=== PATIENT | male | born 1990 | race American Indian/Alaskan Native ===

== ENCOUNTER 2017-04-16 06:50 | Emergency (ER) | payer MEDICAID ==
[~2017-04-16] VITALS: Ht 177.8 cm; Wt 91.1 kg
[2017-04-16 06:55] VITALS: BP 123/70
[2017-04-16] MEDS ORDERED: FLUORESCEIN OPHTHALMIC 1 MG STRIP ONE ×2 (07:13→07:25)
[2017-04-16] MEDS ORDERED: PROPARACAINE OPHTH 0.5%, 15ML ONE ×2 (07:13→07:25)
[2017-04-16] MEDS ORDERED: FLUORESCEIN OPHTHALMIC 1 MG STRIP EACHEYE ONE (07:30)
[2017-04-16] MEDS ORDERED: PROPARACAINE OPHTH 0.5%, 15ML EACHEYE ONE (07:30)
== END 2017-04-16 10:10 | disposition home or self-care (01) ==
LOC: ED 09:05
DX: H10.211 Acute toxic conjunctivitis, right eye (principal); H10.212 Acute toxic conjunctivitis, left eye; B35.3 Tinea pedis; Y04.8XXA Assault by other bodily force, initial encounter; Y93.89 Activity, other specified; Y99.8 Other external cause status; Y92.410 Unspecified street and highway as the place of occurrence of the external cause; Z77.098 Contact with and (suspected) exposure to other hazardous, chiefly nonmedicinal, chemicals

== ENCOUNTER 2017-05-08 03:21 | Emergency (ER) | payer MEDICAID ==
[~2017-05-08] VITALS: Ht 175.3 cm; Wt 88.0 kg
[2017-05-08 03:23] VITALS: BP 124/72
== END 2017-05-08 05:53 | disposition home or self-care (01) ==
LOC: ED 05:13
DX: G89.29 Other chronic pain (principal); M79.662 Pain in left lower leg; R60.0 Localized edema
CPT/HCPCS: 99284

== ENCOUNTER 2018-02-13 04:53 | Emergency (ER) | payer MEDICAID ==
[~2018-02-13] VITALS: Ht 175.3 cm; Wt 94.0 kg
[2018-02-13 04:55] VITALS: BP 127/78
[2018-02-13] MEDS ORDERED: BACITRACIN ZINC OINT 500U/GM, 0.9 GM ONE (06:14)
== END 2018-02-13 07:50 | disposition home or self-care (01) ==
LOC: ED 07:37
DX: S80.211A Abrasion, right knee, initial encounter (principal); W19.XXXA Unspecified fall, initial encounter; Y93.55 Activity, bike riding; Y92.89 Other specified places as the place of occurrence of the external cause; Y99.8 Other external cause status
CPT/HCPCS: 99284

== ENCOUNTER 2018-03-12 14:26 | Emergency (ER) | payer MEDICAID ==
[~2018-03-12] VITALS: Ht 175.3 cm; Wt 93.3 kg
[2018-03-12 14:27] VITALS: BP 124/71
[2018-03-12] MEDS ORDERED: BACITRACIN ZINC OINT 500U/GM, 0.9 GM ONE (15:36)
== END 2018-03-12 16:00 | disposition home or self-care (01) ==
LOC: ED 15:50
DX: S80.211A Abrasion, right knee, initial encounter (principal); S59.801A Other specified injuries of right elbow, initial encounter; V19.9XXA Pedal cyclist (driver) (passenger) injured in unspecified traffic accident, initial encounter; Y93.55 Activity, bike riding; Y92.89 Other specified places as the place of occurrence of the external cause; Y99.8 Other external cause status
CPT/HCPCS: 99284

== ENCOUNTER 2018-04-30 17:11 | Emergency (ER) | payer MEDICAID ==
[~2018-04-30] VITALS: Ht 170.2 cm; Wt 92.4 kg
[2018-04-30 17:16] VITALS: BP 128/75
[2018-04-30] MEDS ORDERED: DEXAMETHASONE 4 MG TABLET PO STA (17:34)
[2018-04-30] MEDS ORDERED: IBUPROFEN 800 MG TABLET PO STA (17:34)
[2018-04-30] MEDS ORDERED: DEXAMETHASONE 4 MG TABLET ONE (17:43)
[2018-04-30] MEDS ORDERED: IBUPROFEN 200 MG TABLET ONE (17:43)
== END 2018-04-30 18:42 | disposition home or self-care (01) ==
LOC: ED 17:45
DX: J02.8 Acute pharyngitis due to other specified organisms (principal)
CPT/HCPCS: 87081; 87880; 99284

== ENCOUNTER 2018-07-01 21:05 | Emergency (ER) | payer MEDICAID ==
[~2018-07-01] VITALS: Ht 170.2 cm; Wt 70.0 kg
[2018-07-01 21:09] VITALS: BP 114/70
== END 2018-07-01 21:44 | disposition home or self-care (01) ==
LOC: ED 21:20
DX: J00 Acute nasopharyngitis [common cold] (principal)
CPT/HCPCS: 99282

== ENCOUNTER 2018-07-05 18:20 | Emergency (ER) | payer MEDICAID ==
[~2018-07-05] VITALS: Ht 172.7 cm; Wt 90.8 kg
[2018-07-05 21:30] VITALS: BP 101/54
== END 2018-07-05 21:36 | disposition home or self-care (01) ==
LOC: ED 21:30
DX: S92.354A Nondisplaced fracture of fifth metatarsal bone, right foot, initial encounter for closed fracture (principal); V29.9XXA Motorcycle rider (driver) (passenger) injured in unspecified traffic accident, initial encounter; Y93.89 Activity, other specified; Y92.410 Unspecified street and highway as the place of occurrence of the external cause; Y99.8 Other external cause status
CPT/HCPCS: 99284

== ENCOUNTER 2019-10-18 18:37 | Emergency (ER) | payer MEDICAID ==
[~2019-10-18] VITALS: Ht 177.8 cm; Wt 89.0 kg
[2019-10-18 19:12] VITALS: BP 121/64
== END 2019-10-18 21:22 | disposition home or self-care (01) ==
LOC: ED 21:01
DX: B34.9 Viral infection, unspecified (principal); J00 Acute nasopharyngitis [common cold]
CPT/HCPCS: 71046; 99283

== ENCOUNTER 2020-04-07 22:54 | Emergency (ER) | payer MEDICAID ==
[~2020-04-07] VITALS: Ht 180.3 cm; Wt 89.7 kg
[2020-04-07 22:59] VITALS: BP 141/85
--- NOTE | 2020-04-08 00:07 | NUR ---
PT TO CT FROM LOBBY
[2020-04-08] MEDS ORDERED: DIPH,PERTUSS(ACELL),TET VAC/PF 0.5 ML IM-VACC ONE (00:30)
--- NOTE | 2020-04-08 01:17 | NUR ---
ERP AT BEDSIDE FOR REEVAL
== END 2020-04-08 02:11 | disposition home or self-care (01) ==
LOC: ED 04-08 01:45
DX: S00.83XA Contusion of other part of head, initial encounter (principal); M54.2 Cervicalgia; K13.79 Other lesions of oral mucosa; Y04.8XXA Assault by other bodily force, initial encounter; Y93.89 Activity, other specified; Y92.488 Other paved roadways as the place of occurrence of the external cause; Y99.8 Other external cause status
CPT/HCPCS: 70450; 70486; 72125; 99285

== ENCOUNTER 2021-05-31 08:32 | Emergency (ER) | payer MEDICAID ==
[~2021-05-31] VITALS: Ht 175.3 cm; Wt 96.4 kg
--- NOTE | 2021-05-31 08:48 | NUR ---
PA-C IS IN TRIAGE FOR ASSESSMENT
--- NOTE | 2021-05-31 09:58 | NUR ---
PT TO ROOM FROM LOBBY. NAD.
[2021-05-31 10:27] VITALS: BP 118/70
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
== END 2021-05-31 11:10 | disposition home or self-care (01) ==
LOC: ED 10:11
DX: S30.861A Insect bite (nonvenomous) of abdominal wall, initial encounter (principal); W57.XXXA Bitten or stung by nonvenomous insect and other nonvenomous arthropods, initial encounter; Y93.89 Activity, other specified; Y92.89 Other specified places as the place of occurrence of the external cause; Y99.8 Other external cause status
CPT/HCPCS: 99281